=== PATIENT | female | born 1965 | race Caucasian/White ===

== ENCOUNTER 2023-09-03 12:27 | Outpatient (CLI) | payer OTHER, SELFPAY ==
--- NOTE | 2023-09-03 13:03 | MM_ITS ---
WS: [id number] BILATERAL 3D TOMOSYNTHESIS DIGITAL DIAGNOSTIC MAMMOGRAPHY WITH CAD CLINICAL INFORMATION: BR PAIN X 6 WEEKS HISTORY: Diagnostic mammogram. Bilateral breast pain. COMPARISON: None. TECHNIQUE: Bilateral CC and MLO views. FINDINGS: Scattered fibroglandular densities bilaterally. No suspicious focal mass, asymmetry, calcifications, or architectural distortion. Areas of pain indicated with markers. Normal underlying parenchymal tiss ue. Ultrasound of these areas pending. ULTRASOUND BREAST BILATERAL TECHNIQUE: Ultrasound bilateral breast focused area of concern. CLINICAL INFORMATION: BR PAIN X 6 WEEKS FINDINGS: RIGHT BREAST: Ultrasound areas of interest. Ultrasound RIGHT breast 9 o'clock position. Normal underl vicky parenchymal tissue. No cystic or solid lesions. LEFT BREAST: Ultrasound areas of interest. Ultrasound LEFT breast at the 3 o'clock position. Normal u nderlying parenchymal tissue. No cystic or solid lesions. IMPRESSION: MM/[id number] BI-RADS: 2-Benign FOLLOW UP: 1 Year Follow-up Recommend return to annual screening mammography.
== END 2023-09-03 12:28 | disposition home or self-care (01) ==
LOC: RAD 12:30
PROVIDERS: PCP Nurse Practitioner; Visit Provider Nurse Practitioner
DX: N64.4 Mastodynia (principal)
CPT/HCPCS: 76642; 77062; G0279